=== PATIENT | female | born 1995 | race Caucasian/White ===

== ENCOUNTER 2022-07-09 08:57 | Emergency (ER) | payer SELFPAY ==
[2022-07-09 10:20] LABS: CORONAVIRUS COVID-19 NAA NEGATIVE (NEGATIVE); INFLUENZA A NAA NEGATIVE (NEGATIVE); INFLUENZA B NAA NEGATIVE (NEGATIVE)
[2022-07-09] MEDS ORDERED: Azithromycin 250 MG Tab PO ONE (11:15)
== END 2022-07-09 11:34 | disposition home or self-care (01) ==
LOC: MW.ED 08:57
DX: J18.9 Pneumonia, unspecified organism (principal); R04.2 Hemoptysis; F17.210 Nicotine dependence, cigarettes, uncomplicated; Z88.0 Allergy status to penicillin; Z88.5 Allergy status to narcotic agent; Z20.822 Contact with and (suspected) exposure to COVID-19
CPT/HCPCS: 0240U; 71046; 99283; A9270

== ENCOUNTER 2022-10-04 08:48 | Emergency (ER) | payer MEDICAID ==
[2022-10-04] MEDS ORDERED: Benzocaine 20% Topical Spray UD MUCMEM ONE (10:06)
[2022-10-04] MEDS ORDERED: Lidocaine 2% Viscous Solution 15 ML UD PO ONE (10:06)
== END 2022-10-04 11:07 | disposition left against medical advice (07) ==
LOC: MW.ED 08:48
DX: Z53.21 Procedure and treatment not carried out due to patient leaving prior to being seen by health care provider (principal)

== ENCOUNTER 2022-10-04 21:07 | Emergency (ER) | payer MEDICAID ==
[2022-10-04] MEDS ORDERED: Sodium Chloride 0.9% 1,000 ML IV ONE (21:21)
[2022-10-04 21:54] LABS: ACETAMINOPHEN < 2.0 ug/mL; BLOOD UREA NITROGEN,BUN 10 mg/dL (7.0-18.0); CARBON DIOXIDE,CO2 25.3 mmol/L (21.0-32.0); CHLORIDE,CL 102 mmol/L (98-107); GLUCOSE RANDOM 99 mg/dL (74-106); POTASSIUM,K 3.9 mmol/L (3.5-5.1); SODIUM,NA 138 mmol/L (136-145)
[2022-10-04 21:55] LABS: ESTIMATED GFR 120 mL/min (>60)
[2022-10-04] MEDS ORDERED: traMADol 50 MG Tab PO ONE (22:19)
[2022-10-04] MEDS ORDERED: Clindamycin HCl 150 MG Cap PO ONE (22:20)
== END 2022-10-04 22:33 | disposition home or self-care (01) ==
LOC: MW.ED 21:07
DX: T39.1X1A Poisoning by 4-Aminophenol derivatives, accidental (unintentional), initial encounter (principal); K02.9 Dental caries, unspecified; Z88.0 Allergy status to penicillin; Z88.8 Allergy status to other drugs, medicaments and biological substances
CPT/HCPCS: 36415; 80053; 80143; 80179; 80305; 80307; 81001; 81025; 83735; 85025; 85610; 85730; 93005; 99283; A9270; J7030; 93010

== ENCOUNTER 2022-10-24 10:02 | Emergency (ER) | payer MEDICAID ==
[2022-10-24] MEDS ORDERED: Sodium Chloride 0.9% 2.5 ML Syringe FLUSH PRN (10:17)
[2022-10-24] MEDS ORDERED: Sodium Chloride 0.9% 10 ML Syringe FLUSH PRN (10:17)
[2022-10-24] MEDS ORDERED: Sodium Chloride 0.9% 1,000 ML IV STA (10:18)
[2022-10-24] MEDS ORDERED: Magnesium Sulfate/Water 2 GM in Premix Bag 1 BAG IV STA (10:18)
[2022-10-24] MEDS ORDERED: Promethazine 25 MG/ML SDV IM STA (10:18)
[2022-10-24] MEDS ORDERED: Morphine 2 MG/ML SYRINGE IVPUSH STA (10:19)
[2022-10-24 10:32] LABS: BASOPHILS PERCENT AUTO 0.2 % (0.0-1.5); EOSINOPHILS ABSOLUTE AUTO 0.2 K/uL (0.0-0.7); EOSINOPHILS PERCENT AUTO 2.5 % (0.0-7.0); HEMATOCRIT 37.1 % (36.0-46.0); HEMOGLOBIN 12.4 g/dL (12.0-16.0); LYMPHOCYTES ABSOLUTE AUTO 3.6 K/uL (0.6-2.4); LYMPHOCYTES PERCENT AUTO 39.3 % (16.0-40.0); MEAN CORPUSCULAR HEMOGLOBIN 26.8 pg (27.0-32.0); MEAN CORPUSCULAR HGB CONC 33.4 g/dL (31.0-37.0); MEAN CORPUSCULAR VOLUME 80.3 fL (80.0-98.0); MONOCYTES ABSOLUTE AUTO 0.7 K/uL (0.0-0.8); MONOCYTES PERCENT AUTO 7.6 % (0.0-15.0); NEUTROPHILS ABSOLUTE AUTO 4.7 K/uL (1.4-5.7); NEUTROPHILS PERCENT AUTO 50.4 % (48.0-80.0); NRBC ABSOLUTE 0 K/uL; PLATELET COUNT,PLT 300 K/uL (150-400); RED BLOOD CELL COUNT 4.62 M/uL (4.30-5.90); WHITE BLOOD CELL COUNT,WBC 9.23 K/uL (4.0-11.0)
[2022-10-24 10:49] LABS: ALBUMIN 3.7 g/dL (3.4-5.0); BILIRUBIN TOTAL 0.1 mg/dL (0.2-1.0); CALCIUM 9.5 mg/dL (8.5-10.1); CARBON DIOXIDE,CO2 23.7 mmol/L (21.0-32.0); CREATININE 0.8 mg/dL (0.6-1.0); EST CRCL DRUG DOSING (CG) 89.6 mL/min; POTASSIUM,K 3.9 mmol/L (3.5-5.1); PROTEIN TOTAL,TP 7.4 g/dL (6.4-8.2)
== END 2022-10-24 11:53 | disposition home or self-care (01) ==
LOC: MW.ED 10:02
DX: J01.10 Acute frontal sinusitis, unspecified (principal); Z88.0 Allergy status to penicillin; Z88.8 Allergy status to other drugs, medicaments and biological substances
CPT/HCPCS: 36415; 70450; 80053; 81025; 83735; 85025; 96365; 96372; 96375; 99285; J2270; J2550; J3475; J7030; 99284

== ENCOUNTER 2023-06-15 10:45 | Emergency (ER) | payer MEDICAID ==
[2023-06-15] MEDS ORDERED: Lidocaine 1% 5 ML VIAL INJECT ONE (11:41)
[2023-06-15] MEDS ORDERED: Bacitracin Oint 1 GM U/D Packet TOP ONE (12:11)
== END 2023-06-15 12:35 | disposition home or self-care (01) ==
LOC: MW.ED 10:45
DX: S61.213A Laceration without foreign body of left middle finger without damage to nail, initial encounter (principal); Z88.0 Allergy status to penicillin; Z88.8 Allergy status to other drugs, medicaments and biological substances; W26.0XXA Contact with knife, initial encounter
CPT/HCPCS: 12002; 99282; J3490

== ENCOUNTER 2024-05-22 07:43 | Emergency (ER) | payer BC, MEDICAID | END 2024-05-22 09:06 | disposition home or self-care (01) | LOC: MW.ED 07:43 | DX: K04.7 Periapical abscess without sinus (principal); F17.210 Nicotine dependence, cigarettes, uncomplicated; Z90.49 Acquired absence of other specified parts of digestive tract; Z79.899 Other long term (current) drug therapy; Z88.0 Allergy status to penicillin; Z88.8 Allergy status to other drugs, medicaments and biological substances | CPT/HCPCS: 99282 ==